=== PATIENT | female | born 1975 | race American Indian/Alaskan Native ===

== ENCOUNTER 2021-08-23 18:34 | Emergency (ER) | payer BC ==
[2021-08-23] MEDS ORDERED: Cyclobenzaprine 10 MG Tab PO ONE (19:01)
[2021-08-23] MEDS ORDERED: Ketorolac 30 MG/ML SDV IM STA (19:02)
[2021-08-23] MEDS ORDERED: Alum Hydroxide/Mag Hydroxide 15 ML, Lidocaine 2% 15 ML PO ONE ×2 (19:50)
[2021-08-23 19:57] LABS: ESTIMATED GFR 109 mL/min (>60)
== END 2021-08-23 20:22 | disposition home or self-care (01) ==
LOC: FB.ED 18:34
DX: K21.9 Gastro-esophageal reflux disease without esophagitis (principal); S33.9XXA Sprain of unspecified parts of lumbar spine and pelvis, initial encounter; E11.9 Type 2 diabetes mellitus without complications; Z79.84 Long term (current) use of oral hypoglycemic drugs; Z79.899 Other long term (current) drug therapy; X58.XXXA Exposure to other specified factors, initial encounter
CPT/HCPCS: 36415; 80053; 84484; 85025; 96372; 99284; A9270; J1885; 93005

== ENCOUNTER 2023-04-29 13:40 | Emergency (ER) | payer BC ==
[2023-04-29 14:02] LABS: BASOPHILS ABSOLUTE AUTO 0.1 x10-3/uL (0.0-0.1); BASOPHILS PERCENT AUTO 0.8 % (0.2-1.5); EOSINOPHILS ABSOLUTE AUTO 0.2 x10-3/uL (0.0-0.8); EOSINOPHILS PERCENT AUTO 1.8 % (0.6-8.1); HEMOGLOBIN 14.9 g/dL (11.4-15.5); LYMPHOCYTES ABSOLUTE AUTO 2.4 x10-3/uL (1.0-4.4); LYMPHOCYTES PERCENT AUTO 26.8 % (18.4-52.1); MEAN CORPUSCULAR HEMOGLOBIN 31.9 pg (23.9-33.9); MEAN CORPUSCULAR HGB CONC 33.8 g/dL (31.9-34.8); MEAN CORPUSCULAR VOLUME 94.2 fL (76.7-100.5); MEAN PLATELET VOLUME 6.6 fL (7.1-12.4); MONOCYTES ABSOLUTE AUTO 0.6 x10-3/uL (0.3-1.0); MONOCYTES PERCENT AUTO 6.6 % (4.4-15.7); NEUTROPHILS ABSOLUTE AUTO 5.8 x10-3/uL (1.5-6.3); PLATELET COUNT,PLT 399 x10(3)uL (151-488); RED BLOOD CELL COUNT 4.67 x10(6)uL (3.60-5.20); RED CELL DISTRIBUTION WIDTH 14.3 % (12.3-16.5); WHITE BLOOD CELL COUNT,WBC 9.1 x10-3/uL (3.0-10.3)
[2023-04-29 14:09] LABS: BLOOD UREA NITROGEN,BUN 12 mg/dL (7-18); BUN/CREATININE RATIO 17.1 (9-20); CARBON DIOXIDE,CO2 27 mmol/L (21-32); CHLORIDE,CL 101 mmol/L (100-110); CREATININE 0.7 mg/dL (0.55-1.02); ESTIMATED GFR 107 mL/min (>60); GLUCOSE RANDOM 103 mg/dL (80-116); POTASSIUM,K 3.9 mmol/L (3.5-5.3); SODIUM,NA 138 mmol/L (135-145)
[2023-04-29 14:15] LABS: A/G RATIO 0.9; ALANINE AMINOTRANSFERASE,ALT 32 U/L (12-36); ALBUMIN 3.6 g/dL (3.5-5.2); ALKALINE PHOSPHATASE 90 IU/L (56-112); ASPARTATE AMNIOTRANSFERASE,AST 10 IU/L (5-25); BILIRUBIN TOTAL 0.5 mg/dL (0.1-1.3); PROTEIN TOTAL,TP 7.8 g/dL (6.0-8.0); SALICYLATE 2.9 mg/dL (<2.8)
[2023-04-29 14:25] LABS: ETHANOL BLOOD MEDICAL < 0.03 % (<0.03)
[2023-04-29 14:27] LABS: HEMOGLOBIN A1C 5.6 % (<5.7)
[2023-04-29 14:29] LABS: BILIRUBIN,URINE NEGATIVE (NEGATIVE); GLUCOSE,URINE NORMAL (NORMAL); KETONES,URINE NEGATIVE (NEGATIVE); LEUKOCYTE ESTERASE,URINE NEGATIVE (NEGATIVE); NITRITE,URINE NEGATIVE (NEGATIVE); OCCULT BLOOD,URINE LARGE (NEGATIVE); PROTEIN,URINE NEGATIVE (NEGATIVE); UROBILINOGEN,URINE NORMAL (NEGATIVE)
[2023-04-29 14:34] LABS: ACETAMINOPHEN < 2 ug/mL (<2)
[2023-04-29 14:37] LABS: APPEARANCE,URINE CLOUDY (CLEAR); BACTERIA,URINE RARE (NS); COLOR,URINE RED (YELLOW); RBC,URINE 75-100 (0-5); SQUAMOUS EPITHELIAL CELLS,UR RARE (NS,R,O); WBC,URINE 0-5 (0-5)
[2023-04-29 14:38] LABS: AMPHETAMINES SCREEN, URINE NEGATIVE (NEGATIVE); BARBITURATE SCREEN,URINE NEGATIVE (NEGATIVE); BENZODIAZEPINES SCREEN,URINE NEGATIVE (NEGATIVE); BUPRENORPHINE SCREEN,URINE NEGATIVE (NEGATIVE); METHADONE SCREEN, URINE NEGATIVE (NEGATIVE); METHAMPHETAMINE SCREEN, URINE NEGATIVE (NEGATIVE); OXYCODONE SCREEN,URINE NEGATIVE (NEGATIVE); THC SCREEN,URINE NEGATIVE (NEGATIVE)
== END 2023-04-29 15:15 | disposition left against medical advice (07) ==
LOC: FB.ED 13:40
DX: Z53.21 Procedure and treatment not carried out due to patient leaving prior to being seen by health care provider (principal)
CPT/HCPCS: 36415; 80053; 80143; 80179; 80307; 81001; 81025; 83036; 84443; 85025